=== PATIENT | female | born 1980 | race Hispanic/Latino ===

== ENCOUNTER 2021-12-06 19:52 | Emergency (ER) | payer SELFPAY ==
[2021-12-06 20:34] LABS: #Basophils 0.1 thou/uL (0.0-0.2); #Eosinphils 0.4 thou/uL (0.0-0.7); #Lymphocytes 2.8 thou/uL (1.20-3.40); #Neutrophils 6.9 thou/uL (1.40-6.50); %Basophils 0.8 % (0.0-1.0); %Eosinophils 3.8 % (0.0-10.0); %Lymphocytes 24.9 % (21.0-51.0); %Monocytes 8.9 % (0.0-10.0); %Neutrophils 61.7 % (42.0-75.0); Hemoglobin 16.1 g/dL (12.0-16.0); Mean Corpuscular HGB CONC 34.5 g/dL (32.0-36.0); Mean Corpuscular Hemoglobin 29.5 pg (27.0-31.0); Mean Corpuscular Volume 85.4 fL (78.0-98.0); Mean Platelet Volume 9.1 fL (7.4-10.4); Platelet Count 233 thou/uL (130-400); RBC Distribution Width 13.2 % (11.5-14.5); Red Blood Cell (RBC) Count 5.45 mill/uL (4.20-5.40); White Blood Cell (WBC) Count 11.2 thou/uL (4.8-10.8)
[2021-12-06 20:42] LABS: BHCG - Serum Negative (NEGATIVE); Pregs Control Background? CLEAR/WHITE (CLR/WHITE); Pregs Control Bar Appear? YES (CONTROL BAR)
[2021-12-06 20:54] LABS: Acetaminophen Less than 10.0 mcg/mL (10.0-30.0); Alcohol Less than 10 mg/dL (Less than 10); Salicylate Less than 8.0 mg/dL (15.0-30.0)
[2021-12-06 20:55] LABS: ALT (SGPT) 20 U/L (8-55); AST (SGOT) 24 U/L (5-34); Albumin 4.7 g/dL (3.5-5.0); Alkaline Phosphatase 97 U/L (40-110); Anion Gap 17 mmol/L (10-20); BUN (Urea Nitrogen) 12 mg/dL (7.0-18.7); Bilirubin, Total 1.7 mg/dL (0.2-1.2); Calc. Creatinine Clearance 0 mL/min (70-130); Calcium 9.9 mg/dL (7.8-10.44); Carbon Dioxide 25 mmol/L (22-29); Chloride 99 mmol/L (98-107); Estimated GFR 77; Globulin 3.8 g/dL (2.4-3.5); Glucose 120 mg/dL (70-105); Potassium 3.2 mmol/L (3.5-5.1); Protein, Total 8.5 g/dL (6.0-8.3); Sodium 138 mmol/L (136-145)
[2021-12-06 20:59] LABS: Amphetamine Not Detected (NotDetected); Barbiturates Screen Not Detected (NotDetected); Benzodiazepine Screen Not Detected (NotDetected); Cocaine Metabolite Screen Detected (NotDetected); Methadone Not Detected (NotDetected); Methamphetamine Not Detected (NotDetected); Opiate Screen Not Detected (NotDetected); Oxycodone Screen Not Detected (NotDetected); Phencyclidine (PCP) Not Detected (NotDetected); THC/Cannabinoid Screen Not Detected (NotDetected); Tricyclic Screen Not Detected (NotDetected)
[2021-12-06] MEDS ORDERED: Lorazepam (BATCHED) 2 MG/ML SYR SLOW IVP SCH (22:00)
[2021-12-06] MEDS ORDERED: Lorazepam (BATCHED) 2 MG/ML SYR IM SCH (22:00)
== END 2021-12-07 09:44 ==
LOC: ERS 19:52
DX: R45.851 Suicidal ideations (principal); I10 Essential (primary) hypertension
CPT/HCPCS: 36415; 80053; 80306; 80307; 84443; 84703; 85025; 93005; 96372; J2060